=== PATIENT | female | born 1985 | race Two or more races ===

== ENCOUNTER → 2024-06-06 | Outpatient (CLI) | payer MEDICAID, SELFPAY ==
--- NOTE | 2024-06-06 | XR_ITS ---
Examination: Cervical spine 3 views Technique one AP lateral coned AP odontoid cervical spine 3 views Exam date and time: June 06, 2024 1342 hours INDICATIONS: Neck pain beginning 2 years ago FINDINGS: Straightening normal cervical lordosis No cervical fracture Intact odontoid IMPRESSION: No cervical fracture or significant arthritic change
== END | disposition home or self-care (01) ==
PROVIDERS: PCP Nurse Practitioner Family; Referring Provider Nurse Practitioner Family; Visit Provider Nurse Practitioner Family
DX: M54.2 Cervicalgia (principal)
CPT/HCPCS: 72040

== ENCOUNTER → 2024-06-20 | Outpatient (CLI) | payer MEDICAID, SELFPAY ==
--- NOTE | 2024-06-20 10:00 | XR_ITS ---
Examination: Breast ultrasound, unilateral, right complete Date and time of exam: June 20, 2024 1106 hours INDICATIONS: Palpable mass lower outer quadrant right breast on examination by physician this month brain sensation in the right breast 2 years Technique: Real-time franco scale ultrasonographic imaging performed right breast including all 4 quadrants as well as nipple retroareolar and axillary region. Findings: No cystic or solid mass Consider diagnostic mammography follow-up IMPRESSION: No cystic or solid mass
== END | disposition home or self-care (01) ==
LOC: CDIM 10:41
PROVIDERS: PCP Nurse Practitioner Family; Referring Provider Nurse Practitioner Family; Visit Provider Nurse Practitioner Family
DX: N63.13 Unspecified lump in the right breast, lower outer quadrant (principal)
CPT/HCPCS: 76641

== ENCOUNTER → 2024-06-22 | Outpatient (CLI) | payer MEDICAID, SELFPAY ==
--- NOTE | 2024-06-22 09:30 | XR_ITS ---
Examination: Diagnostic digital mammography, unilateral, right Computer aided detection 3-D breast Tomosynthesis, unilateral Date and time of exam: June 22, 2024 at 0915 hours INDICATIONS: Lump in the right breast note is beginning 2 years ago Technique: Nonmagnified MLO, CC views of the right breast have been obtained, reconstructed from 3-D Tomosynthesis images. R2 computer aided detection program utilized for evaluation of suspicious masses and/or abnormal calcifications. 3-D Tomosynthesis images obtained. Findings: The breast is heterogeneously dense, which may obscure small masses 3 mm circumscribed nodule on the spot compression MLO view at the palpable marker site Impression: BI-RADS category 3: Probably benign findings One additional 6 month right mammogram follow-up is needed to document stability of 3 mm circumscribed nodule spot compression MLO view at the palpable marker site as well as focal asymmetry upper right breast 6.2 cm from the nipple
== END | disposition home or self-care (01) ==
LOC: CDIM 09:00
PROVIDERS: Referring Provider Nurse Practitioner Family; Visit Provider Nurse Practitioner Family
DX: R92.331 Mammographic heterogeneous density, right breast (principal); N64.89 Other specified disorders of breast
CPT/HCPCS: 77061; 77065; G0279

== ENCOUNTER → 2025-01-27 | Outpatient (CLI) | payer MEDICAID, SELFPAY ==
--- NOTE | 2025-01-27 12:30 | XR_ITS ---
Examination: Pelvic ultrasound, transabdominal, complete Technique: Transabdominal ultrasound of the pelvis performed using grayscale imaging Date and time of exam: January 27, 2025 1300 hours INDICATIONS: Severe pelvic pain with intercourse beginning 4 years ago, vaginal cramping 6 months FINDINGS: Uterus 8.6 cm endometrial stripe 1.4 cm No uterine mass or intrauterine gestation Right ovary 4.0 cm arterial flow, 2.4 x 0.7 x 2.0 cm cyst Left ovary 3.1 cm arterial flow Mild fluid in the cul-de-sac IMPRESSION: Right ovarian simple cyst 2.4 x 0.7 x 2.0 cm
--- NOTE | 2025-01-27 13:00 | XR_ITS ---
Examination: Diagnostic digital mammography, unilateral, right Computer aided detection 3-D breast Tomosynthesis, unilateral Date and time of exam: January 27, 2025 1255 hours INDICATIONS: Mammogram June 22, 2024 3 mm nodule spot compression view at the palpable marker site Technique: Nonmagnified MLO, CC views of the right breast is heterogeneously dense, which may obscure small masses breast have been obtained, reconstructed from 3-D Tomosynthesis images. R2 computer aided detection program utilized for evaluation of suspicious masses and/or abnormal calcifications. 3-D Tomosynthesis images obtained. Findings: The breast is heterogeneously dense, which may obscure small masses No suspicious mass is noted on the follow-up spot compression views Impression: BI-RADS category 2: Benign findings Return to yearly follow-up mammography
== END | disposition home or self-care (01) ==
PROVIDERS: PCP Nurse Practitioner Family; Referring Provider Nurse Practitioner Family; Visit Provider Nurse Practitioner Family
DX: R92.321 Mammographic fibroglandular density, right breast (principal); N83.291 Other ovarian cyst, right side
CPT/HCPCS: 76856; 77061; 77065; G0279